=== PATIENT | male | born 1960 | race Caucasian/White ===

== ENCOUNTER 2020-04-21 18:32 | Emergency (ER) | payer MEDICAID, MEDICARE ==
[~2020-04-21] VITALS: Ht 190.5 cm; Wt 100.0 kg
[~2020-04-21 18:32] MED LIST: ATEN-72 PO; BUPR75 PO; PROP10TA72 PO
[2020-04-21] MEDS ORDERED: ATEN-73 PO (18:54)
[2020-04-21] MEDS ORDERED: FURO20 PO (18:54)
[2020-04-21] MEDS ORDERED: PREDAOS OS (18:54)
[2020-04-21] MEDS ORDERED: VALS40TA4 PO (18:54)
[2020-04-21] MEDS ORDERED: COMB5OS OS (18:54)
[2020-04-21] MEDS ORDERED: NETA2.5D3 OS (18:54)
[2020-04-21] MEDS ORDERED: AMLO-258 PO (18:54)
[2020-04-21] MEDS ORDERED: ACETAMINOPHEN 1000 MG/ISO-OSM 100 ML IV ONE (19:30)
[2020-04-21] MEDS ORDERED: KETOROLAC TROMETHAMINE 30 MG/ML VIAL IVP ONE (19:30)
[2020-04-21] MEDS ORDERED: SODIUM CHLORIDE 0.9% 1,000 ML IV ONE (19:30)
[2020-04-21 20:04] LABS: BASOPHILS % (AUTO) 0.8 % (0.0-2.0); EOSINOPHILS % (AUTO) 4.7 % (1.0-6.0); HEMATOCRIT 36.4 % (41-53); HEMOGLOBIN 12.1 g/dL (13.5-17.5); LYMPHOCYTES # (AUTO) 1.5 K/uL (1.0-4.8); LYMPHOCYTES % (AUTO) 19.9 % (22.0-44.0); MEAN CORPUSCULAR HEMOGLOBIN 31.5 pg (26.0-34.0); MEAN CORPUSCULAR HGB CONC 33.2 G/dL (31.0-37.0); MEAN CORPUSCULAR VOLUME 95 fL (80-100); MONOCYTES # (AUTO) 0.6 K/uL (0.1-1.0); MONOCYTES % (AUTO) 7.9 % (2.0-9.0); NEUTROPHILS # (AUTO) 4.9 K/uL (1.8-7.7); NEUTROPHILS % (AUTO) 66.7 % (40.0-70.0); PLATELET COUNT (AUTO) 203 K/uL (150-450); RED BLOOD CELL COUNT(AUTO) 3.83 MIL/uL (4.50-5.90); RED CELL DISTRIBUTION WIDTH 12.1 % (11.5-14.5)
[2020-04-21 20:14] LABS: CALCIUM, TOTAL 8.6 mg/dL (8.8-10.5); CREATININE 3.95 mg/dL (0.60-1.30); POTASSIUM 4.6 mmol/L (3.5-5.1)
[2020-04-21 20:20] LABS: ALBUMIN 3.7 g/dL (3.4-5.0); BILIRUBIN,TOTAL 0.3 mg/dL (0.1-1.0); TOTAL PROTEIN, SERUM 6.9 g/dL (6.4-8.2)
[2020-04-21 22:04] VITALS: BP 114/65
== END 2020-04-21 22:10 | disposition home or self-care (01) ==
LOC: EMS 18:32
DX: N18.9 Chronic kidney disease, unspecified (principal); F32.9 Major depressive disorder, single episode, unspecified; I10 Essential (primary) hypertension
CPT/HCPCS: 36415; 80053; 83690; 85025; 96365; 99284; J0131; J7030